=== PATIENT | male | born 1980 | race Caucasian/White ===

== ENCOUNTER 2017-03-17 10:27 | Emergency (ER) | payer SELFPAY ==
[~2017-03-17] VITALS: Ht 188 cm; Wt 75.6 kg
[2017-03-17 10:29] VITALS: TEMP 36.5; Ht 188 cm; Wt 75.6 kg
[2017-03-17] MEDS ORDERED: KETOROLAC TROMETHAMINE 30 MG/ML VIAL IV STA (11:27)
[2017-03-17] MEDS ORDERED: PROMETHAZINE HCL INJ 25 MG/ML 1 ML VIAL IV STA (11:27)
[2017-03-17] MEDS ORDERED: SODIUM CHLORIDE 0.9% 1000ML 1,000 ML IV STA (11:27)
[2017-03-17] MEDS ORDERED: DiphenhydrAMINE HCL 50 MG/ML VIAL IV STA (11:27)
[2017-03-17] MEDS ORDERED: PROMETHAZINE HCL INJ 25 MG in SODIUM CHLORIDE 0.9% 50ML 50 ML IV SCH (12:00)
[2017-03-17 12:43] VITALS: BP 127/88; PULSE 54; O2SAT 100
--- NOTE | 2017-03-17 19:47 | EMERGENCY ROOM VISIT NOTE ---
ED Visit Note First contact with patient: 11:13 CHIEF COMPLAINT: Migraine headache. HISTORY OF PRESENT ILLNESS: Mr. Zarate is a 36 year-old white male who ambulates into the ED accompanied by a female friend complaining of a migraine headache. He reports a gradual onset of a severe migraine headache that started approximately 18 hours ago. The pain is constant and it is slowly increasing in severity. This is not the worst headache of the life and is similar to previous migraines. Currently he describes the headache as a achy sensation/pain in the right frontal and temporoparietal areas. Then he reports he has waves of discomfort. He/She rates the pain a 7/10. The pain is radiating into the occipital area. He reports taking acetaminophen with mild relief of pain. There is been associated light sensitivity, blurry vision, nausea and vomiting. He denies fever, chills recently, sinus infection, runny nose, sore throat, no weakness or numbness of the extremities, no difficulty with speech, hearing or vision, and no trauma to the head and no neck pain. REVIEW OF SYSTEMS: As noted above in History of Present Illness; all body systems were reviewed with the patient and found to be negative unless noted above otherwise. PAST MEDICAL HISTORY: Gastric ulcers, migraine headaches, unspecified brain cyst. CURRENT MEDICATIONS: Patient denies. ALLERGIES TO MEDICATIONS: Latex. SOCIAL HISTORY: Patient is currently employed; he feels safe in his home environment; he admits to tobacco and alcohol use. PHYSICAL EXAM: Vital Signs: Date Time Temp Pulse Resp B/P Pulse Ox O2 Delivery O2 Flow Rate FiO2 03/17/17 12:43 54 16 127/88 100 03/17/17 10:29 36.5 78 18 125/88 97 Room Air GENERAL: 36 year-old white male in moderate distress due to pain, afebrile and hemodynamically stable. Found lying in a darkened room. NEUROLOGIC: Awake, alert and oriented to person place and time. Answering questions appropriately and following commands. Cranial nerves II-XII grossly intact. No focal neurologic deficits noted. Good short-term and long-term recall. SKIN: Warm, dry and pink. No rashes, lesions or soft tissue trauma noted. HEENT: Normocephalic, atraumatic. PERRLA. EOMI without nystagmus. Sclera anicteric. External ears and nontender. Auditory canals are pink and patent. Funduscopic exam was deferred due to light sensitivity. Tympanic membranes are pearly govea with with normal light reflex. No tenderness or erythema over the frontal or maxillary sinuses. Oral cavity is moist and pink. Airway is patent. Uvula is midline and no abscesses are seen. No tonsillar hypertrophy or exudates. No JVD. Trachea midline. NECK: Soft and supple. No tenderness through the central cervical region or cervical musculature. No meningismus. THORAX: Lungs clear to auscultation and equal bilaterally with no wheezing, crackles, rhonchi or stridor and equal chest wall movements. HEART: Regular rate and rhythm with no murmurs, rubs or gallops. ABDOMEN: Soft and nontender with bowel sounds present in all quadrants; no rigidity, rebound tenderness, organomegaly or guarding. MUSCULOSKELETAL: Full range of motion of all joints without any significant discomfort and the gait is normal. ED COURSE: Patient is assessed with history and physical examination. Patient was hydrated with normal saline, he was given 30 mg of Toradol IV, 50 mg of Benadryl IV and 25 mg of Phenergan IV for his symptoms. Patient was reassessed multiple times during his stay in the emergency department. Patient was educated about his condition and instructed on his treatment plan; he verbalized understanding and agreement with this plan. CLINICAL IMPRESSION: Migraine headache. DECISION MAKIN-year-old male who presents for evaluation of headache. He is afebrile, well appearing, and hemodynamically stable. He has no signs of a sinus, dental, or ear infection and no evidence of meningismus. He is neurologically intact. I do not suspect a headache to be secondary to a subarachnoid hemorrhage, meningitis, encephalitis, or intracranial mass lesion. DISPOSITION: Patient was discharged to home in stable condition accompanied by his ; prior to departure he was reassessed and subjectively reported he was feeling better and rated his discomfort 3/10. DISCHARGE INSTRUCTIONS: Rest at home, in a quiet darkened room and allow the medication to work for the pain. Continue to follow up current treatment plan prescribed by your physician for your migraine headaches. See your own doctor in follow-up this week for continued care and treatment. Return to the emergency department as needed for worsening symptoms, abnormal neurological symptoms, fevers or any new/concerning symptoms.
== END 2017-03-17 12:44 | disposition home or self-care (01) ==
LOC: C.EDB 10:28 → C.EDA 12:44
DX: G43.909 Migraine, unspecified, not intractable, without status migrainosus (principal); K25.9 Gastric ulcer, unspecified as acute or chronic, without hemorrhage or perforation; G93.0 Cerebral cysts; Z72.0 Tobacco use

== ENCOUNTER 2017-03-21 20:40 | Emergency (ER) | payer SELFPAY ==
[~2017-03-21] VITALS: Ht 188 cm; Wt 73.0 kg
[2017-03-21 20:46] VITALS: BP 113/72; TEMP 37.1; Ht 188 cm; Wt 73.0 kg
--- NOTE | 2017-03-21 21:26 | DIAGNOSTIC IMAGING REPORT ---
RIGHT FOOT 3 VIEWS CLINICAL HISTORY: Right foot injury. FINDINGS: 3 views of the right foot are compared to study dated 10/07/2015. The skeletal structures are well mineralized. There is a tiny avulsion fracture identified along the dorsal aspect of the navicular. No additional fracture is seen. The joint spaces of the foot are well-maintained. There are tiny dorsal and plantar calcaneal enthesophytes. Soft tissue edema is seen along the dorsal aspect of the foot. IMPRESSION: 1. There is a tiny avulsion fracture along the dorsal aspect of the navicular with overlying soft tissue edema. 2. No additional fracture is seen. 3. Small heel spurs. Electronically signed by: Izaiah Snowden M.D. 03/21/2017 9:25 PM Dictated Date/Time: 03/21/2017 9:23 PM
--- NOTE | 2017-03-21 21:31 | DIAGNOSTIC IMAGING REPORT ---
RIGHT ANKLE 3 VIEWS; RIGHT TIBIA AND FIBULA 2 VIEWS CLINICAL HISTORY: Right ankle injury. Leg pain. FINDINGS: 3 views of the right ankle with AP and lateral views of the right tibia and fibula are obtained. No prior studies are available for comparison at the time of dictation. The skeletal structures are well mineralized. There is no radiographic evidence of right tibial or fibular fracture. The knee joint appears maintained. The ankle mortise is intact. There is no ankle joint effusion. Mild soft tissue swelling is present around ankle. A tiny avulsion fracture is seen along the dorsal surface of the navicular with overlying soft tissue edema. Small dorsal and plantar calcaneal enthesophytes are observed. A calcification is incidentally noted in the posterior calf along the course of the Achilles tendon. IMPRESSION: 1. There is no radiographic evidence of right tibial or fibular fracture. 2. No fracture is seen at the ankle joint. 3. There is a tiny avulsion fracture along the dorsal aspect of the navicular with overlying soft tissue edema. Electronically signed by: Izaiah Snowden M.D. 03/21/2017 9:30 PM Dictated Date/Time: 03/21/2017 9:27 PM
[2017-03-21] MEDS ORDERED: NORCO 5/325MG HOME PACK PO ONE (22:00)
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
[2017-03-21 22:30] VITALS: PULSE 73; O2SAT 97
== END 2017-03-21 22:30 | disposition home or self-care (01) ==
LOC: C.EDB 20:41 → C.EDD 22:30
DX: S92.254A Nondisplaced fracture of navicular [scaphoid] of right foot, initial encounter for closed fracture (principal); V86.99XA Unspecified occupant of other special all-terrain or other off-road motor vehicle injured in nontraffic accident, initial encounter; G43.909 Migraine, unspecified, not intractable, without status migrainosus